=== PATIENT | female | born 1975 | race Hispanic/Latino ===

== ENCOUNTER 2022-08-21 09:35 | Day surgery (SDC) | payer OTHER ==
[2022-08-19 13:27] VITALS: BP 121/84
[~2022-08-21] VITALS: Ht 157.5 cm; Wt 85.5 kg
[~2022-08-21 09:35] MED LIST: CYMBALTA60 MG PO; NEURONTIN300 MG PO; RIZATRIPTAN5 MG PO
[2022-08-21 09:55] VITALS: BP 103/48
--- NOTE | 2022-08-21 13:04 | NUR ---
08/21/22 1304 Jailene Sol 1235 PT ARRIVED IN PACU NON RESPONSIVE TO NOXIOUS STIMULI. CHIN LIFT HELD BY RN. 1240 BP LOW. ANESTHESIA AWARE AND OPA PLACED. 1245 EPHEDRINE GIVEN IV BY ANESTHESIA. CHIN LIFT NOT REQUIRED AFTER OPA PLACED. 1256 PT REACTIVE. OPA REMOVED. 1300 AWAKE TALKING TO STAFF. NO C/O'S. ICE PLACED TO R UPPER ARM.
[2022-08-21 13:20] VITALS: BP 121/43
[2022-08-21] MEDS ORDERED: HYDROCODON-ACE1 EAC8 PO (13:51)
[2022-08-21 14:20] VITALS: BP 118/48
--- NOTE | 2022-08-21 16:00 | NUR ---
1320: PATIENT BACK IN DAY SURGERY ROOM FROM PACU. DENIES PAIN. RIGHT UPPER ARM DRESSING CLEAN, DRY AND INTACT. IV SITE WNL. SCDs ON. TOLERATING WATER. GIVEN CHOCOLATE PUDDING. VS CHECKED. CALL LIGHT WITHIN REACH. SANDWICH ORDERED. 1420: TOLERATED SANDWICH. DENIES PAIN. VS CHECKED. RIGHT UPPER ARM DRESSING CLEAN, DRY AND INTACT. DISCHARGE INSTRUCTIONS GIVEN TO PATIENT. PATIENT ASSISTED OOB. GAIT STEADY. PATIENT GETTING DRESSED. 1430: IV DC'D WNL. TIP INTACT. DRESSING APPLIED. WAITING FOR RIDE. 1445: PATIENT DISCHARGED TO HOME VIA WHEELCHAIR WITH FRIEND.
--- NOTE | 2022-08-22 06:57 | OR ---
[facility] [address] [place], [place] [address] Signed DATE OF OPERATION: 08/21/2022 SURGEON: Sierra Cheema MD PREOPERATIVE DIAGNOSIS: Right posterior upper extremity subcutaneous mass (3 x 4 cm), lipoma. POSTOPERATIVE DIAGNOSIS: Excision of subcutaneous mass. ESTIMATED BLOOD LOSS: None. INDICATIONS: Maegan is a 47-year-old female, who asked to see me for a subcutaneous mass on the posterior aspect of her right arm. It is almost towards the arm joints the side of her chest. She says it has been at least five years maybe longer. It has been increasing in size. She said it is painful whenever she bumps on anything including her clothing. 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 She said it has been fairly miserable. She also works as a caregiver. She has finally decided she wanted to have it evaluated. She had been to her primary care provider. She was asked to see me as a local general surgeon to have it removed. To her knowledge it has never been infected. In the office, one could easily see the mass in the posterior aspect of her right arm. In the office, it measured about 5 x 7 cm. Once we had it removed from underneath the skin, it was about 3 x 4 cm. The overlying skin was a bit tented up as well. I explained to Maegan we could excise that under local anesthetic possibly but she said that was not possible given her history of anxiety and depression. Consequently, we decided we take her over the operating room. She understands there is risk including, but not limited to bleeding, infection, scarring, change in contour of the skin, recurrent lesions in the same or other locations. She had expressed understanding and wished to proceed. PROCEDURE IN DETAIL: I met with Maegan in her preop area. We were able to identify that easily and joon it appropriately. After this, she was taken in the operating room and placed in the supine position under general LMA anesthesia. Her right arm was brought up over her shoulder. With appropriate padding and the area was prepped and draped in the usual sterile fashion. She was given preoperative antibiotics along with subcutaneous heparin. SCDs were utilized. We used an oblique elliptical incision over the lesion to remove some of the skin as well as underlying lipoma. The entire lipoma was passed off the field. We Electronically Signed By: SIERRA CHEEMA MD 08/22/22 0657 PATIENT NAME: CALLY RAMOS OPERATIVE REPORT DATE OF : 77 REPORT #: [id number] PHYSICIAN: SIERRA CHEEMA MD PCP: PARTHA THAKKAR PAC REPORT IS CONFIDENTIAL AND NOT TO BE RELEASED WITHOUT AUTHORIZATION [facility] [address] [place], [place] [address] Signed injected local anesthetic into the wound. The wound was irrigated and suctioned out until clear. We closed the dermis with interrupted 3-0 subcuticular Monocryl sutures. The skin edges were reapproximated with a running 5-0 fast absorbing plain gut suture. Dry gauze and tape were then applied. Maegan was then awakened from anesthesia, extubated in the OR, and taken to recovery in stable condition. Sierra Cheema MD ALB/MODL /[id number] cc: Partha Cheema MD Copies: SIERRA CHEEMA MD ~ Electronically Signed By: SIERRA CHEEMA MD 08/22/22 0657 PATIENT NAME: CALLY RAMOS OPERATIVE REPORT DATE OF : 77 REPORT #: [id number] PHYSICIAN: SIERRA CHEEMA MD PCP: PARTHA THAKKAR PAC REPORT IS CONFIDENTIAL AND NOT TO BE RELEASED WITHOUT AUTHORIZATION
== END 2022-08-21 14:45 | disposition home or self-care (01) ==
LOC: DS 09:35
PROVIDERS: ATTEND Colon & Rectal Surgery
DX: D17.21 Benign lipomatous neoplasm of skin and subcutaneous tissue of right arm (principal); J45.909 Unspecified asthma, uncomplicated; M79.7 Fibromyalgia; Z98.51 Tubal ligation status; Z88.1 Allergy status to other antibiotic agents; Z79.899 Other long term (current) drug therapy
CPT/HCPCS: 00400; J0690; J1100; J1644; J1885; J2001; J2250; J2405; J2704; J3010; J7121

== ENCOUNTER 2023-06-18 07:40 | Day surgery (SDC) | payer OTHER ==
[~2023-06-18] VITALS: Ht 157.5 cm; Wt 90.9 kg
[~2023-06-18 07:40] MED LIST changes: +FAMOTIDINE 20 MG/ 2 ML VIAL IV SCH; +HYDROCODON-ACE1 EAC8 PO; +IBLOOD GLUCOSE TEST STRIP 1 EA TEST VI PRN; +LACTATED RINGER'S 1,000 ML IV SCH; +LIDOCAINE HCL 1% 5 ML SDV INJ ONE; +METOCLOPRAMIDE HCL 10 MG/2 ML SDV IV SCH
[2023-06-18 07:54] VITALS: BP 131/83
[2023-06-18] MEDS ORDERED: LIDOCAINE HCL 2% 5 ML SDV ONE (10:03)
[2023-06-18] MEDS ORDERED: propofoL 200 MG/20 ML VIAL ONE (10:03)
[2023-06-18] MEDS ORDERED: dexmedeTOMIDine HCl 200 MCG/2 ML VIAL ONE (10:03)
[2023-06-18] MEDS ORDERED: KETAMINE in NS 50 MG/5 ML SYR ONE (10:03)
[2023-06-18] MEDS ORDERED: fentaNYL citrate 100 MCG/2 ML VIAL ONE (10:03)
[2023-06-18] MEDS ORDERED: DEXAMETHASONE SOD PHOS 4 MG/ML VIAL ONE (10:03)
[2023-06-18] MEDS ORDERED: ondansetron HCL 4 MG/2 ML VIAL ONE (10:03)
[2023-06-18] MEDS ORDERED: KETOROLAC TROMETHAMINE 30 MG/ML VIAL ONE (10:03)
[2023-06-18] MEDS ORDERED: ACETAMINOPHEN 1,000 MG/100 ML VIAL ONE (10:04)
[2023-06-18] MEDS ORDERED: PROCHLORPERAZINE EDISYLATE 10 MG/2 ML VIAL IV PRN (11:00)
[2023-06-18] MEDS ORDERED: ondansetron HCL 4 MG/2 ML VIAL IV PRN (11:00)
[2023-06-18] MEDS ORDERED: FAMOTIDINE 20 MG TAB PO PRN (11:00)
[2023-06-18] MEDS ORDERED: diphenhydrAMINE HCL 50 MG/ML VIAL IV PRN (11:00)
[2023-06-18] MEDS ORDERED: MAGNESIUM HYDROXIDE/AL HYDROX 30 ML CUP PO PRN (11:00)
[2023-06-18] MEDS ORDERED: LACTATED RINGER'S 1,000 ML IV SCH (11:00)
[2023-06-18] MEDS ORDERED: ondansetron HCL 4 MG TAB PO PRN (11:00)
[2023-06-18] MEDS ORDERED: HYDROCODONE/ACETA 5/325 TAB PO PRN (11:00)
[2023-06-18] MEDS ORDERED: IBUPROFEN 800 MG TAB PO PRN (11:00)
--- NOTE | 2023-06-18 11:01 | NUR ---
06/18/23 1101 Dayana Aquino 1053-PATIENT ARRIVED TO PACU ON 6L MASK RR EVEN. PATIENT REACTIVE TO VERBAL STIMULI OPENING EYES NOT FOLLOWING COMMANDS REMAINS VERY DROWSY CLOSING EYES. SR. IVF INFUSING. CHARLENE PAD IN PLACE CDI. 1100-PATIENT AROUSING "ASKING IF WE ARE DONE" ORIENTED TO PACU. 6L MASK RR EVEN. DENIES PAIN OR NAUSEA.
[2023-06-18 11:44] VITALS: BP 135/79
--- NOTE | 2023-06-18 11:49 | NUR ---
1125: PT RETURNS TO UNIT VIA STRETCHER FROM PACU. AWAKE AND ALERT ON ARRIVAL. VSS, RESP EVEN AND UNLABORED. PT DENIES PAIN AND NAUSEA. ICE WATER AND PUDDING PROVIDED. MINIMAL AMOUNT OF RED DRAINAGE NOTED TO PERIPAD. POC DISCUSSED AND PT AGREEABLE. NO NEEDS, CALL LIGHT WITHIN REACH
[2023-06-18 12:32] VITALS: BP 127/66
--- NOTE | 2023-06-18 12:34 | NUR ---
1230: PT AWAKE AND ALERT IN STRETCHER USING CELLPHONE. VSS, RESP EVEN AND UNLABORED ON RA. DENIES PAIN AND NAUSEA. DRU PO INTAKE. ICE WATER REPLENISHED AND MORE PUDDING PROVIDED AT REQUEST. IV FLUSHED AND CONVERTED TO SL. NO CHANGE TO PERIPAD. PT TO CALL FOR THIS RN WHEN FINISHED WITH PUDDING FOR ASSISTANCE AMBULATING TO BR. CALL LIGHT WITHIN REACH
--- NOTE | 2023-06-18 13:54 | NUR ---
1245: PT DANGLED AT THE BEDSIDE, DRU WELL. DENIES DIZZINESS AND SOB. AMBULATES TO BR WITH STANDBY FROM THIS RN. SUCCESSFUL FIRST POSTOP VOID, 250MLS. MINIMAL RED DRAINAGE NOTED TO PERIPAD. OCCASIONAL SMALL CLOT NOTED IN URINE. DISCUSSED WITH PT AND PT VOICES UNDERSTANDING. MESH UNDERWEAR AND PERIPAD PROVIDED. PT TO DRESS INDEPENDENTLY FOR DC 1255: DC INSTRUCTIONS PROVIDED AND DISCUSSED ORDERED. PT VOICES UNDERSTANDING AND DENIES QUESTIONS AND CONCERNS AT THIS TIME. WHEELED OFF OF UNIT IN WC BY THIS RN. TRANSFERS INTO VEHICLE INDEPENDENTLY AND APPROPRIATELY. NO PHYSICAL S/S OF DISTRESS AT THIS TIME
--- NOTE | 2023-06-19 07:51 | OR ---
[facility] [address] [place], [place] [address] Signed DATE OF OPERATION: 06/18/2023 SURGEON: Felicia Pena MD PREOPERATIVE DIAGNOSES: Abnormal uterine bleeding and endometrial polyps. POSTOPERATIVE DIAGNOSES: Abnormal uterine bleeding and endometrial polyps. PROCEDURE: Hysteroscopy with resection of endometrial polyps. ANESTHESIA: General LMA. ESTIMATED BLOOD LOSS: Minimal. DRAINS: None. INDICATIONS AND FINDINGS: The patient is a 48-year-old female, who has been having abnormal bleeding since September of last year. Endometrial biopsy in the office revealed an endometrial polyp. She is now scheduled for removal and evaluation of the cavity. On hysteroscopy, the cavity appeared to have multiple polyps over the posterior fundus. It did sound to 12 cm. DESCRIPTION OF PROCEDURE: The patient was prepped and draped in the dorsal lithotomy position. A weighted speculum was placed. The anterior lip of the cervix was visualized and grasped with single-tooth tenaculum. The cavity was sounded to 12 cm. The endocervical canal was then easily dilated to a #8 dilator. The MyoSure device was placed and the cavity evaluated. The MyoSure Lite was then introduced and the polyps were resected without any difficulty. When the cavity appeared clean, the procedure was complete. The instruments removed were removed. There was no evidence of any ongoing bleeding from the tenaculum site. All sponge and needle counts were correct. She was taken to the recovery room in good condition. Electronically Signed By: FELICIA PENA MD 06/19/23 0751 PATIENT NAME: CALLY RAMOS OPERATIVE REPORT DATE OF : 77 REPORT #: [id number] PHYSICIAN: FELICIA PENA MD PCP: PARTHA THAKKAR PAC REPORT IS CONFIDENTIAL AND NOT TO BE RELEASED WITHOUT AUTHORIZATION [address] [address] Signed MD CELESTINO Tobar/SYEDL /[id number] Copies: ~ Electronically Signed By: FELICIA PENA MD 06/19/23 0751 PATIENT NAME: CALLY RAMOS OPERATIVE REPORT DATE OF : 77 REPORT #: [id number] PHYSICIAN: FELICIA PENA MD PCP: PARTHA THAKKAR PAC REPORT IS CONFIDENTIAL AND NOT TO BE RELEASED WITHOUT AUTHORIZATION
--- NOTE | 2023-06-22 11:59 | PATH ---
[facility] [address] [facility] [place], [place] [address] Signed SPECIMEN(S): A ENDOMETRIAL CURETTINGS AND POLYPS SPECIMEN SOURCE: A. ENDOMETRIAL CURETTINGS AND POLYPS CLINICAL HISTORY: polyp of endometrium, dysfunctional uterine bleeding FINAL PATHOLOGIC DIAGNOSIS: Endometrium, curettage and polypectomy: - Fragments of proliferative phase endometrium and benign endometrial polyps; no hyperplasia or neoplasia identified BRP MICROSCOPIC EXAMINATION: Histologic sections of all submitted blocks are examined by light microscopy. These findings, together with the gross examination, support the pathologic diagnosis. GROSS DESCRIPTION: The specimen, labeled and designated "Argueta, a" and designated on the requisition "EMC and endometrial polyps," is received in formalin and consists of multiple fragments of pink-bains soft tissue (2.5 x 2.3 x 0.5 cm in aggregate). The specimen is submitted entirely in cassette A1. AC (under the direct supervision of a pathologist) The Gross Description was prepared using a voice recognition system. The report was reviewed for accuracy; however, sound-alike word errors, addition and/or deletions may occur. If there is any question about this report, please contact Client Services. ADDITIONAL NOTES: Immunohistochemical and/or in situ hybridization studies if performed in this case included appropriate positive controls that reacted as expected. This test was developed and its performance characteristics determined by [facility]. It has not been cleared or approved by the U.S. Food and Drug Administration. The FDA has determined that such clearance or approval is not necessary. This test is used for clinical purposes. It should not be regarded as investigational or for research. [employer] [employer] is certified under the Clinical Laboratory Improvement PATIENT NAME: CALLY ARGUETA PATHOLOGY DATE OF : 77 REPORT #: [id number] PHYSICIAN: LONNY GARVIN PCP: PARTHA THAKKAR PAC REPORT IS CONFIDENTIAL AND NOT TO BE RELEASED WITHOUT AUTHORIZATION [facility] [address] [place], [place] [address] Signed Amendments of 1988 (CLIA) as qualified to perform high complexity clinical laboratory testing. PERFORMING LABORATORY: Technical component was performed by [facility], [address] [place] [address] (CLIA# [id number]). Professional interpretation was performed by [facility] - [address] [address] [id number] Diagnostician: Eduar Song MD Pathologist Electronically Signed 06/22/2023 Copies: ~ PATIENT NAME: CALLY ARGUETA PATHOLOGY DATE OF : 77 REPORT #: [id number] PHYSICIAN: LONNY GARVIN PCP: PARTHA THAKKAR PAC REPORT IS CONFIDENTIAL AND NOT TO BE RELEASED WITHOUT AUTHORIZATION
== END 2023-06-18 12:55 | disposition home or self-care (01) ==
LOC: DS 07:40 → OPS 07:40
PROVIDERS: ATTEND Obstetrics & Gynecology
PROC: 0UB98ZZ Excision of Uterus, Via Natural or Artificial Opening Endoscopic (ICD-10-PCS; principal; 2023-06-18 09:30)
DX: N84.0 Polyp of corpus uteri (principal); N93.9 Abnormal uterine and vaginal bleeding, unspecified; F33.1 Major depressive disorder, recurrent, moderate; E55.9 Vitamin D deficiency, unspecified; G43.909 Migraine, unspecified, not intractable, without status migrainosus; Z79.899 Other long term (current) drug therapy; Z88.8 Allergy status to other drugs, medicaments and biological substances
CPT/HCPCS: 00952; J0131; J1100; J1885; J2001; J2405; J2704; J2765; J3010; J3490; J7121

== ENCOUNTER 2024-04-02 05:54 | Emergency (ER) | payer BC, OTHER ==
[~2024-04-02] VITALS: Ht 157.5 cm; Wt 90.0 kg
[~2024-04-02 05:54] MED LIST changes: -FAMOTIDINE 20 MG/ 2 ML VIAL IV SCH; -IBLOOD GLUCOSE TEST STRIP 1 EA TEST VI PRN; -LACTATED RINGER'S 1,000 ML IV SCH; -LIDOCAINE HCL 1% 5 ML SDV INJ ONE; -METOCLOPRAMIDE HCL 10 MG/2 ML SDV IV SCH
[2024-04-02] MEDS ORDERED: METFORMIN HCL500 MG PO (06:12)
[2024-04-02] MEDS ORDERED: IRON325 M1 PO (06:13)
[2024-04-02] MEDS ORDERED: VITAMIN D3125 MC2 (06:13)
[2024-04-02 06:27] LABS: EOSINOPHILS 3.8 % (0-6); HEMATOCRIT 43.4 % (35.0-50.0); HEMOGLOBIN 15.4 g/dL (12.0-18.0); LYMPHOCYTES 32.8 % (24-44); MCHC 35.4 g/dl (30-36); MCV 93.3 fl (81-99); MONOCYTES 7.8 % (0-12); NEUTROPHILS 54.6 % (39-80); PLATELET COUNT 263 K/uL (140-440); RBC 4.65 M/ul (4.3-5.7); RDW 13.5 (10.5-15.0)
[2024-04-02] MEDS ORDERED: ondansetron HCL 4 MG/2 ML VIAL IV ONE (06:30)
[2024-04-02] MEDS ORDERED: MORPHINE SULFATE 4 MG/ML VIAL IV ONE (06:30)
[2024-04-02 06:52] LABS: ALBUMIN 3.8 g/dL (3.4-5.0); ANION GAP 8.8 (7-21); BILIRUBIN, TOTAL 0.5 ng/dL (0.2-1.0); BUN/CREATININE RATIO 12.5 (6.0-28.6); CALCIUM 8.9 mg/dL (8.5-10.1); CREATININE, SERUM 0.88 mg/dL (0.55-1.02); POTASSIUM 3.8 mmol/L (3.5-5.1); PROTEIN, TOTAL 7.6 g/dL (6.4-8.2)
[2024-04-02] MEDS ORDERED: KETOROLAC TROMETHAMINE 30 MG/ML VIAL IV ONE (07:00)
[2024-04-02 07:25] LABS: BILIRUBIN, URINE NEGATIVE (negative); BLOOD/HGB, URINE SMALL (Negative); KETONE, URINE NEGATIVE (Negative); LEUK ESTERASE, URINE NEGATIVE (negative); NITRITE, URINE NEGATIVE (negative); PH, URINE 7.5 (5-7)
[2024-04-02 07:32] LABS: EPITHELIAL CELLS, URINE SQUAMOUS 3+ /lpf (0-1+)
[2024-04-02 07:33] LABS: BACTERIA, URINE NONE SEEN /hpf (negative); CASTS, URINE NONE SEEN \\lpf; COLLECTION TYPE, URINE CLEAN CATCH; CRYSTALS, URINE AMORPHOUS PHOSPH 1+ (0-1+); REFLEX CULTURE, URINE No (No); WHITE BLOOD CELLS, URINE 0-1 /HPF (0-5)
[2024-04-02] MEDS ORDERED: CYCLOBENZAPRINE10 MG PO (07:53)
[2024-04-02 08:02] VITALS: BP 126/83
== END 2024-04-02 08:02 | disposition home or self-care (01) ==
LOC: ED 05:54
PROVIDERS: Family Medicine
DX: R10.31 Right lower quadrant pain (principal); Z88.1 Allergy status to other antibiotic agents; Z79.899 Other long term (current) drug therapy; Z79.84 Long term (current) use of oral hypoglycemic drugs
CPT/HCPCS: 36415; 74176; 80053; 81001; 84703; 85025; 96374; 96375; 99284-25; J1885; J2270; J2405